=== PATIENT | male | born 1985 | race Caucasian/White ===

== ENCOUNTER 2018-03-06 20:07 | Emergency (ER) | payer MEDICAID, OTHER ==
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
[2018-03-06 20:18] VITALS: BP 103/82
== END 2018-03-06 20:55 | disposition home or self-care (01) ==
DX: F41.9 Anxiety disorder, unspecified (principal); F43.10 Post-traumatic stress disorder, unspecified; R10.9 Unspecified abdominal pain

== ENCOUNTER 2018-03-07 00:24 | Emergency (ER) | payer MEDICAID, OTHER ==
--- NOTE | 2018-03-07 00:29 | EDPHY ---
H & P Time Seen by Provider: 03/07/18 00:29 HPI/ROS: HPI CHIEF COMPLAINT: Anxiety, seen earlier HISTORY OF PRESENT ILLNESS: 33-year-old male presents to the emergency room stating that he feels anxious. He was seen her earlier. I asked him how I could help him however, he started screaming at me I offered to treat him for acute anxiety however he has declined. He did somewhat become threatening and asked security to be at bedside. I did offer him 1 mg p.o. Ativan however he has declined. Past Medical History: Anxiety and PTSD Past Surgical History: No recent surgical history Social History: Homeless. Family History: Noncontributory ROS REVIEW OF SYSTEMS: A comprehensive 10 point review of systems is otherwise negative aside from elements mentioned in the history of present illness. Exam Constitutional No Distress, triage nursing summary reviewed, vital signs reviewed, awake/alert. Eyes normal conjunctivae and sclera, EOMI, PERRLA. HENT normal inspection, atraumatic, moist mucus membranes, no epistaxis, neck supple/ no meningismus, no raccoon eyes. Respiratory clear to auscultation bilaterally, normal breath sounds, no respiratory distress, no wheezing. Cardiovascular rate normal, regular rhythm, no murmur, no edema, distal pulses normal. Gastrointestinal soft, non-tender, no rebound, no guarding, normal bowel sounds, no distension, no pulsatile mass. Genitourinary no CVA tenderness. Musculoskeletal no midline vertebral tenderness, full range of motion, no calf swelling, no tenderness of extremities, no meningismus, good pulses, neurovascularly intact. Skin pink, warm, & dry, no rash, skin atraumatic. Neurologic awake, alert and oriented x 3, AAOx3, moves all 4 extremities equally, motor intact, sensory intact, CN II-XII intact, normal cerebellar, normal vision, normal speech. Psychiatric normal mood/affect. Heme/Lymph/Immune no lymphadenopathy. Differential Diagnosis: Includes but is not limited to in a particular order acute anxiety, PTSD, panic attack. Medical Decision Making: Plan for this patient I did offer him anxiety medicine here in the emergency room however he declined he did at 1 point get threatening the asked security to be at bedside. The patient otherwise appears well nontoxic in no acute distress stable vital signs. Declined any anxiety medication. I do recommend he follows up outpatient for his anxiety. I will refer him given that he is homeless to [facility]. . Source: Patient - Medical/Surgical History Hx Asthma: No Hx Chronic Respiratory Disease: No Hx Diabetes: No Hx Cardiac Disease: No Hx Renal Disease: No Hx Cirrhosis: No Hx Alcoholism: No Hx HIV/AIDS: No Hx Splenectomy or Spleen Trauma: No Other PMH: gastritis, anxiety, depression, PTSD - Social History Smoking Status: Current every day smoker Constitutional: Initial Vital Signs Temperature (C) 36.6 C 03/07/18 00:29 Heart Rate 76 03/07/18 00:29 Respiratory Rate 16 03/07/18 00:29 Blood Pressure 128/80 H 03/07/18 00:29 O2 Sat (%) 97 03/07/18 00:29 O2 Delivery Mode Room Air Allergies/Adverse Reactions: No Known Allergies Allergy (Unverified 03/07/18 00:29) Home Medications: Medication Instructions Recorded NK [No Known Home Meds] 03/07/18 Departure - Departure Disposition: Home, Routine, Self-Care Clinical Impression: Anxiety Condition: Good Instructions: Anxiety (ED) Additional Instructions: 1. Please follow up [facility] or primary care doctor about her anxiety. 2. Return to the emergency room if you have any further questions or concerns. Referrals: NONE *PRIMARY CARE P,. [Primary Care Provider] - As per Instructions [facility],. [Clinic] - As per Instructions
[2018-03-07 00:31] VITALS: BP 128/80
== END 2018-03-07 00:37 | disposition home or self-care (01) ==
DX: F41.9 Anxiety disorder, unspecified (principal); F17.200 Nicotine dependence, unspecified, uncomplicated